=== PATIENT | male | born 1950 | race Two or more races ===

== ENCOUNTER 2019-04-03 03:28 | Emergency (ER) | payer OTHER ==
[~2019-04-03] VITALS: Ht 177.8 cm; Wt 68.0 kg
[2019-04-03] MEDS ORDERED: InsuLIN REG 1unit/0.01ml Soln (100units/ml) IV ONE (04:15)
[2019-04-03] MEDS ORDERED: SODIUM CHLORIDE 0.9% 1,000 ML IV ONE (04:15)
[2019-04-03] MEDS ORDERED: cefTRIAXone 1GM/50ML D5W 50 ML IV ONE (04:15)
[2019-04-03] MEDS ORDERED: VANCOMYCIN 1GM/250ML 250 ML IV ONE (04:15)
[2019-04-03 04:23] LABS: Basophils # (auto) 0.1 uL; Eosinophils # (auto) 0.2 uL; Eosinophils % (auto) 1.6 % (0.0-7.0); Hematocrit 40.5 % (41.0-53.0); Hemoglobin 13.5 g/dL (13.5-17.5); Lymphocytes # (auto) 1.1 uL; Lymphocytes % (auto) 10.5 % (10.0-50.0); Mean Corpuscular Hemoglobin 31.1 pg (28.0-32.0); Mean Corpuscular Hgb Conc. 33.4 g/dL (32.0-36.0); Mean Corpuscular Volume 93.1 fL (80.0-100.0); Monocytes % (auto) 9.1 % (0.0-12.0); Neutrophils # (auto) 8.4 uL; Neutrophils % (auto) 77.8 % (37.0-80.0); Platelet Count (auto) 245 10^3/uL (140-450); Red Blood Cells 4.35 10^6/uL (4.5-5.90); Red Cell Distribution Width 12.8 % (11.8-14.3); White Blood Cell 10.8 10^3/uL (4.4-10.8)
[2019-04-03 04:45] LABS: Albumin 3.2 g/dL (3.4-5.0); Calcium 8.7 mg/dL (8.5-10.1)
[2019-04-03 04:47] LABS: Bilirubin, Total 0.8 mg/dL (0.2-1.0); Total Protein 8.6 g/dL (6.4-8.2)
[2019-04-03 04:52] LABS: Potassium 4.6 mmol/L (3.5-5.1)
[2019-04-03 07:25] VITALS: BP 122/53
[2019-04-03] MEDS ORDERED: ACETAMINOPHEN 325 MG TAB PO ONE (07:30)
== END 2019-04-03 07:50 | disposition short-term general hospital (02) ==
LOC: ER 03:31
DX: L03.116 Cellulitis of left lower limb (principal); E11.52 Type 2 diabetes mellitus with diabetic peripheral angiopathy with gangrene; I96 Gangrene, not elsewhere classified; E11.65 Type 2 diabetes mellitus with hyperglycemia
CPT/HCPCS: 36415; 73700; 80053; 82962; 83605; 85025; 87040; 96365; 96368; 96375; 99285; J0696; J1815; J3370; J7030

== ENCOUNTER 2019-06-01 21:35 | Emergency (ER) | payer OTHER ==
[~2019-06-01] VITALS: Ht 177.8 cm; Wt 50.8 kg
[2019-06-01 22:15] LABS: Basophils # (auto) 0 uL; Basophils % (auto) 0.7 % (0.0-2.0); Eosinophils # (auto) 0.5 uL; Eosinophils % (auto) 6.9 % (0.0-7.0); Hemoglobin 12.6 g/dL (13.5-17.5); Lymphocytes # (auto) 1.7 uL; Lymphocytes % (auto) 24.6 % (10.0-50.0); Mean Corpuscular Hemoglobin 30.7 pg (28.0-32.0); Mean Corpuscular Hgb Conc. 33.2 g/dL (32.0-36.0); Mean Corpuscular Volume 92.4 fL (80.0-100.0); Monocytes # (auto) 0.5 uL; Monocytes % (auto) 7.6 % (0.0-12.0); Neutrophils # (auto) 4.2 uL; Neutrophils % (auto) 60.2 % (37.0-80.0); Platelet Count (auto) 248 10^3/uL (140-450); Red Blood Cells 4.11 10^6/uL (4.5-5.90); Red Cell Distribution Width 14.2 % (11.8-14.3); White Blood Cell 6.9 10^3/uL (4.4-10.8)
[2019-06-01 22:33] LABS: Alanine Aminotransferase 22 U/L (16-61); Albumin 3.1 g/dL (3.4-5.0); Anion Gap 6 (5-15); Aspartate Aminotransferase 16 U/L (15-37); BUN/Creatinine Ratio 28.4; Blood Urea Nitrogen 31 mg/dL (7-18); Calcium 8.5 mg/dL (8.5-10.1); Carbon Dioxide 26 mmol/L (21-32); Chloride 106 mmol/L (98-107); GFR African American 86 mL/min; GFR Non-African American 71 mL/min; Glucose 357 mg/dL (74-106); Potassium 4.3 mmol/L (3.5-5.1); Sodium 138 mmol/L (136-145)
[2019-06-01 22:38] LABS: Alkaline Phosphatase 111 U/L (45-117); Bilirubin, Total 0.4 mg/dL (0.2-1.0); Total Protein 7.4 g/dL (6.4-8.2)
[2019-06-02 00:10] VITALS: BP 158/69
== END 2019-06-02 01:01 | disposition home or self-care (01) ==
LOC: ER 21:37
DX: L03.115 Cellulitis of right lower limb (principal)
CPT/HCPCS: 36415; 73700; 80053; 83605; 84484; 85025; 87040

== ENCOUNTER 2024-05-30 16:55 | Emergency (ER) | payer OTHER, MEDICAID ==
[~2024-05-30] VITALS: Ht 175.3 cm; Wt 43.0 kg
--- NOTE | 2024-05-30 18:29 | ED.PDOC ---
History of Present Illness HPI Comments 73-year-old male with PMHx DM, HTN, Dementia brought in by EMS presents with a chief complaint of abdominal pain, nausea, and right foot wound. Patient has necrosis on the right 1st and 2nd toes and they are black in color. Patient is a poor historian secondary to Dementia diagnosis. Patient believes that he is here due to abdominal pain, however, [facility]PS called EMS due to living conditions being non-appropriate for patient. Patient lives with his blind whom is unable to fully care for patient. Chief Complaint: Failure to Thrive Time Seen by MD: 18:12 Primary Care Provider: YARELI Reviewed Notes: Medications, Allergies Allergies: Coded Allergies: NO KNOWN ALLERGIES (Unverified , 04/03/19) Information Source: Patient, Emergency Med Personnel Mode of Arrival: EMS Severity: Moderate Timing: Hours Duration: Since onset Prehospital treatment: None Past Medical History PAST MEDICAL HISTORY: Dementia, DM, High Lipids Surgical History: Denies all surgeries Family History Family History: Reviewed,noncontributory to illness Social History Smoker: Non-Smoker Alcohol: Denies ETOH Use Drugs: Denies Drug Use Lives In: Home Constitutional: denies: chills, diaphoresis, fatigue, fever, malaise, sweats, weakness, others EENTM: denies: blurred vision, double vision, ear bleeding, ear discharge, ear drainage, ear pain, ear ringing, eye pain, eye redness, hearing loss, mouth pain, mouth swelling, nasal discharge, nose bleeding, nose congestion, nose pain, photophobia, tearing, throat pain, throat swelling, voice changes, others Respiratory: denies: cough, hemoptysis, orthopnea, SOB at rest, shortness of breath, SOB with excertion, stridor, wheezing, others Cardiovascular: denies: chest pain, dizzy spells, diaphoresis, Dyspnea on exertion, edema, irregular heart beat, left arm pain, lightheadedness, palpitations, PND, syncope, others Gastrointestinal: reports: abdominal pain, nausea; denies: abdomen distended, blood streaked bowels, constipated, diarrhea, dysphagia, difficulty swallowing, hematemesis, melena, poor appetite, poor fluid intake, rectal bleeding, rectal pain, vomiting, others Genitourinary: denies: burning, dysuria, flank pain, frequency, hematuria, incontinence, penile discharge, penile sore, pain, testicle pain, testicle swelling, urgency, others Neurological: denies: dizziness, fainting, headache, left sided numbness, left sided weakness, numbness, paresthesia, pre-existing deficit, right sided numbness, right sided weakness, seizure, speech problems, tingling, tremors, weakness, others Musculoskeletal: denies: back pain, gout, joint pain, joint swelling, muscle pain, muscle stiffness, neck pain, others Integumetry: reports: wounds (RIGHT FOOT); denies: bruises, change in color, change in hair/nails, dryness, laceration, lesions, lumps, rash, others Allergic/Immunocompromised: denies: Difficulty Healing, Frequent Infections, Hives, Itching, others Hematologic/Lymphatic: denies: anemia, blood clots, easy bleeding, easy bruising, swollen glands, others Endocrine: denies: excessive hunger, excessive sweating, excessive thirst, excessive urination, flushing, intolerance to cold, intolerance to heat, unexplained weight gain, unexplained weight loss, others Psychiatric: denies: anxiety, bipolar disorder, depression, hopeless, panic disorder, schizophrenia, sleepless, suicidal, others All Other Systems: Reviewed and Negative Physical Exam General Appearance: Moderate Distress, Normal HEENT: Normal ENT Inspection, Pharynx Normal, TMs Normal Neck: Full Range of Motion, Non-Tender, Normal, Normal Inspection Respiratory: Chest Non-Tender, Lungs Clear, No Accessory Muscle Use, No Respiratory Distress, Normal Breath Sounds Cardiovascular: No Edema, No JVD, No Murmur, No Gallop, Normal Peripheral Pulses, Regular Rate/Rhythm Breast Exam: Deferred Gastrointestinal: No Organomegaly, Non Tender, No Pulsatile Mass, Normal Bowel Sounds, Soft Genitalia: Deferred Pelvic: Deferred Rectal: Deferred Extremities: No calf tenderness, Normal capillary refill, Normal inspection, Normal range of motion, Non-tender, No pedal edema Musculoskeletal : Apperance: Normal Neurologic: Alert, radiology equipment servicer II-XII nml as Tested, No Motor Deficits, Normal Affect, Normal Mood, No Sensory Deficits Cerebellar Function: Normal Reflexes: Normal Skin: Dry, Normal Color, Warm Lymphatic: No Adenopathy Was a procedure done? Was a procedure done?: No Differential Dx Considerations may include: Failure to thrive also mellitus of the feet. Diabetic foot ulcers X-Ray, Labs, Meds, VS Vital Signs Date Time Temp Pulse Resp B/P (MAP) Pulse Ox O2 Delivery O2 Flow Rate FiO2 05/30/24 20:10 95 05/30/24 19:25 98.0 98 16 129/70 (89) 97 98.0 05/30/24 19:25 98 16 97 Room Air* 0 21 05/30/24 19:07 99 05/30/24 18:48 105 8 99 Room Air* 0 05/30/24 18:05 105 8 130/62 (84) 99 05/30/24 18:02 102 05/30/24 17:00 98.3 93 18 135/59 (84) 98 Lab Test 05/30/24 19:19 05/30/24 18:30 Range/Units Troponin I High Sensitivity 10 7 </=54 ng/L White Blood Count 7.7 4.4-10.8 10^3/uL Red Blood Count 3.53 L 4.5-5.90 10^6/uL Hemoglobin 10.8 L 13.5-17.5 g/dL Hematocrit 32.2 L 41.0-53.0 % Mean Corpuscular Volume 91.4 80.0-100.0 fL Mean Corpuscular Hemoglobin 30.6 28.0-32.0 pg Mean Corpuscular Hemoglobin Concent 33.5 32.0-36.0 g/dL Red Cell Distribution Width 14.7 H 11.8-14.3 % Platelet Count 292 140-450 10^3/uL Mean Platelet Volume 8.2 6.9-10.8 fL Neutrophils (%) (Auto) 73.0 37.0-80.0 % Lymphocytes (%) (Auto) 17.6 10.0-50.0 % Monocytes (%) (Auto) 7.6 0.0-12.0 % Eosinophils (%) (Auto) 1.3 0.0-7.0 % Basophils (%) (Auto) 0.5 0.0-2.0 % Neutrophils # (Auto) 5.6 1.6-8.6 10 ^3/uL Lymphocytes # (Auto) 1.4 0.4-5.4 10 ^3/uL Monocytes # (Auto) 0.6 0-1.3 10 ^3/uL Eosinophils # (Auto) 0.1 0-0.8 10 ^3/uL Basophils # (Auto) 0 0-0.2 10 ^3/uL Nucleated Red Blood Cells 0.1 % Prothrombin Time 10.9 9.3-11.8 sec Prothrombin Time INR 1.03 0.9-1.15 Activated Partial Thromboplast Time 24.7 24.5-34.5 SEC Sodium Level 142 136-145 mmol/L Potassium Level 4.3 3.5-5.1 mmol/L Chloride Level 105 98-107 mmol/L Carbon Dioxide Level 31 20-31 mmol/L Anion Gap 6 5-15 Blood Urea Nitrogen 18 9-23 mg/dL Creatinine 0.92 0.700-1.30 mg/dL Glomerular Filtration Rate Calc 87 >90 mL/min BUN/Creatinine Ratio 19.6 10.0-20.0 Serum Glucose 216 H 74-106 mg/dL Calcium Level 9.6 8.7-10.4 mg/dL Magnesium Level 2.0 1.6-2.6 mg/dL Total Bilirubin 0.6 0.2-1.0 mg/dL Aspartate Amino Transferase (AST) 28 13-40 U/L Alanine Aminotransferase (ALT) 26 7-40 U/L Alkaline Phosphatase 134 H 46-116 U/L B-Type Natriuretic Peptide 111.06 0-100 pg/mL Total Protein 6.4 5.7-8.2 g/dL Albumin 3.7 3.2-4.8 g/dL Current Medications Medications (Trade) Dose Ordered Sig/Vicki Route Start Time Stop Time Status Last Admin Sodium Chloride 1,000 ml @ 150 mls/hr Q6H40M ONCE IV 05/30/24 18:15 05/31/24 00:54 05/30/24 18:57 Vancomycin HCl 200 ml @ 200 mls/hr ONCE ONCE IV 05/30/24 18:15 05/30/24 19:14 DC 05/30/24 19:05 PATIENT: MATT SANCHESCCT: [id number]: [id number] : 1950 LOC: ER ROOM / BED: / AGE / SEX: 73 / M ADM STATUS: REG ER SERVICE 18 ORDERING PHYSICIAN: FERNANDO ROMAN MD PROCEDURE(s): LFOT2 - L FOOT 2 VIEW XRAY REASON: ulcers ORDER NUMBER(s): [id number], ACCESSION NUMBER(s): [id number] CLINICAL INDICATION: ulcers TECHNIQUE: 2 radiographic views of the LEFT FOOT were obtained. 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 There is subluxation of the distal phalanx of the 2nd toe on the middle phalanx with erosive changes of the 2nd toe distal phalanx tuft. No evidence of acute traumatic fractures . If there is concern for osteomyelitis, MRI should be considered for further evaluation. ATED BY: BECKY ZAMORA DO DICTATED DATE/TIME: 05/30/242058 SIGNED BY: BECKY ZAMORA DO SIGNED DATE/TIME: 05/30/242058 PATIENT: MATT SANCHESCCT: [id number]: [id number] : 1950 LOC: ER ROOM / BED: / AGE / SEX: 73 / M ADM STATUS: REG ER SERVICE 06 ORDERING PHYSICIAN: FERNANDO ROMAN MD PROCEDURE(s): CXRP - CHEST PORTABLE REASON: failure to thrive ORDER NUMBER(s): [id number], ACCESSION NUMBER(s): [id number] CHEST RADIOGRAPH Indication:failure to thrive Technique: Single frontal view of the chest was obtained Comparison: None FINDINGS: Lines and Tubes: None Lungs: No focal consolidation. Pleura: No effusion. No pneumothorax. Cardiomediastinal contours: Unremarkable Bones: No acute osseous abnormality. IMPRESSION: No acute cardiopulmonary disease. ATED BY: BECKY ZAMORA DO DICTATED DATE/TIME: 05/30/241845 SIGNED BY: BECKY ZAMORA DO SIGNED DATE/TIME: 05/30/241845 [place] [address] Ph: [phone] DIAGNOSTIC IMAGING Diagnostic Imaging Report : [id number] Signed PATIENT: JESUS SANCHES ACCT: [id number] UNIT: [id number] : 1950 LOC: ER ROOM / BED: / AGE / SEX: 73 / M ADM STATUS: REG ER SERVICE 1833 ORDERING PHYSICIAN: FERNANDO ROMAN MD PROCEDURE(s): ABPL - CT AB PEL WO CON-NO ORAL OR IV REASON: abd pain ORDER NUMBER(s): [id number], ACCESSION NUMBER(s): [id number] Exam: CT CT AB PEL WO CON-NO ORAL OR IV History: abd pain Comparison Study: None available at time of dictation. TECHNIQUE: Multidetector CT of the abdomen was performed from lung bases to pubic symphysis. Imaging was performed without IV contrast. Axial, coronal and sagittal multiplanar reformats were obtained from the axial data set by the technologist. Radiation Dose Information: CT Dose: CTDI volume is 9.53 mGy. Dose-length product is 490.34 mGy*cm FINDINGS: Evaluation of solid organs is limited due to lack of intravenous contrast use. Findings: Lung Bases: No acute or significant lung base finding. Normal heart size. No pleural or pericardial effusion. Liver: The liver is normal in size. No focal lesions. Gallbladder and Biliary Tree: Questionable gallstone Spleen: Unremarkable Pancreas: The pancreas is grossly normal in appearance. Adrenal Glands: Unremarkable Kidneys: Kidneys are grossly normal without calculi or hydronephrosis. Bladder: Grossly unremarkable for degree of distention. Bowel: The stomach is grossly normal in appearance. Small bowel and colon are normal in caliber and distribution. The appendix is not visualized; however, no secondary findings of acute appendicitis identified. Ascites: Absent Lymphadenopathy: No mesenteric, retroperitoneal or periportal lymphadenopathy. Abdominal Wall and Mesentery: Unremarkable. Vasculature: The visualized abdominal aorta is normal in size and caliber. Eval uation of abdominal and pelvic vessels is limited due to lack of intravenous contrast. Pelvic Organs: Unremarkable Musculoskeletal: No aggressive focal bony lesions, acute fractures or dislocation. Bilateral hip prosthesis creating beam hardening artifact obscuring pelvic detail. Soft tissues: 4.8 by 3.5 cm soft tissue mass in the left inguinal area. IMPRESSION: 1. Questionable cholelithiasis ( series 2 ; images 23-25) 2. No findings of bowel obstruction 3. Large stool burden throughout the colon . Radiation optimization: All CT scans at this facility use at least one of these dose optimization techniques: automated exposure control mA and/or kV adjustment per patient size (includes targeted exams where dose is matched to clinical indication) or iterative reconstruction. ATED BY: FRANK SERRANO Jr., DO DICTATED DATE/TIME: 05/30/242047 SIGNED BY: FRANK SERRANO Jr., SIGNED DATE/TIME: 05/30/242047 CC: First troponin is seven. Second troponin is 10. BNP is 111. EKG shows no signs of ischemia. Hemoglobin is 10.8. Abdominal pelvis CT reveals constipation and cholelithiasis. The patient also has several small diabetic toe and foot ulcers on the left foot. He was placed on vancomycin. Left foot x-ray ? Osteo mellitus Patient was placed Zosyn and vancomycin. The patient will be transferred to [place] by Dr. Mccoy. Authorization #[id number] Time of 1ST Reevaluation: 18:42 Reevaluation 1ST: Unchanged Patient Education/Counseling: Diagnosis, Treatment, Prognosis Family Education/Counseling: No Family Present Departure 1 Departure Time of Disposition: 21:28 Impression: Primary Impression: Failure in dosage Additional Impressions: Poorly controlled diabetes mellitus Diabetic foot ulcer Qualified Codes: E11.621 - Type 2 diabetes mellitus with foot ulcer; L97.503 - Non-pressure chronic ulcer of other part of unspecified foot with necrosis of muscle Cholelithiasis Qualified Codes: K80.20 - Calculus of gallbladder without cholecystitis without obstruction Constipation Qualified Codes: K59.00 - Constipation, unspecified Urinary incontinence Qualified Codes: R32 - Unspecified urinary incontinence Gravely disabled Osteomyelitis Qualified Codes: M86.9 - Osteomyelitis, unspecified Disposition: 02 SHORT TERM HOSPITAL Condition: Stable Discharged With: Self Critical Care Note Critical Care Time?: Yes (55 min-critical care time only) Stability Stability form required: No I personally scribed for FERNANDO ROMAN MD ([email or web address]) on 05/30/24 at 18:29. Electronically submitted by Boston Parson ([email or web address]). I personally scribed for FERNANDO ROMAN MD ([email or web address]) on 05/30/24 at 19:12. Electronically submitted by Boston Parson ([email or web address]). I personally scribed for FERNANDO ROMAN MD ([email or web address]) on 05/30/24 at 21:22. Electronically submitted by Boston Parson ([email or web address]). FERNANDO ROMAN MD May 30, 2024 18:29
[2024-05-30 18:48] VITALS: PULSE 105; RESP 8; O2SAT 99
--- NOTE | 2024-05-30 18:49 | DVH ---
CHEST RADIOGRAPH Indication:failure to thrive Technique: Single frontal view of the chest was obtained Comparison: None FINDINGS: Lines and Tubes: None Lungs: No focal consolidation. Pleura: No effusion. No pneumothorax. Cardiomediastinal contours: Unremarkable Bones: No acute osseous abnormality. IMPRESSION: No acute cardiopulmonary disease.
[2024-05-30] MEDS: SODIUM CHLORIDE 0.9% 1,000 ML IV ONE (18:57)
[2024-05-30 19:02] LABS: Basophils # (auto) 0 10 ^3/uL (0-0.2); Basophils % (auto) 0.5 % (0.0-2.0); Eosinophils # (auto) 0.1 10 ^3/uL (0-0.8); Eosinophils % (auto) 1.3 % (0.0-7.0); Hematocrit 32.2 % (41.0-53.0); Hemoglobin 10.8 g/dL (13.5-17.5); Lymphocytes # (auto) 1.4 10 ^3/uL (0.4-5.4); Lymphocytes % (auto) 17.6 % (10.0-50.0); Mean Corpuscular Hemoglobin 30.6 pg (28.0-32.0); Mean Corpuscular Hgb Conc. 33.5 g/dL (32.0-36.0); Mean Corpuscular Volume 91.4 fL (80.0-100.0); Monocytes # (auto) 0.6 10 ^3/uL (0-1.3); Monocytes % (auto) 7.6 % (0.0-12.0); Neutrophils # (auto) 5.6 10 ^3/uL (1.6-8.6); Nucleated Red Blood Cells % 0.1 %; Platelet Count (auto) 292 10^3/uL (140-450); Red Blood Cells 3.53 10^6/uL (4.5-5.90); Red Cell Distribution Width 14.7 % (11.8-14.3); White Blood Cell 7.7 10^3/uL (4.4-10.8)
[2024-05-30] MEDS: VANCOMYCIN 1GM/200ML PREMIX 200 ML IV ONE (19:05)
[2024-05-30 19:18] LABS: Alanine Aminotransferase 26 U/L (7-40); Albumin 3.7 g/dL (3.2-4.8); Alkaline Phosphatase 134 U/L (46-116); Anion Gap 6 (5-15); Aspartate Aminotransferase 28 U/L (13-40); BUN/Creatinine Ratio 19.6 (10.0-20.0); Bilirubin, Total 0.6 mg/dL (0.2-1.0); Blood Urea Nitrogen 18 mg/dL (9-23); Calcium 9.6 mg/dL (8.7-10.4); Carbon Dioxide 31 mmol/L (20-31); Chloride 105 mmol/L (98-107); Glucose 216 mg/dL (74-106); INR 1.03 (0.9-1.15); Partial Thromboplastin Time 24.7 SEC (24.5-34.5); Potassium 4.3 mmol/L (3.5-5.1); Prothrombin Time 10.9 sec (9.3-11.8); Sodium 142 mmol/L (136-145); Total Protein 6.4 g/dL (5.7-8.2)
[2024-05-30 19:25] VITALS: PULSE 98; RESP 16; O2SAT 97
--- NOTE | 2024-05-30 20:26 | ECG ---
[facility] Test Date: 2024-05-30 Test Time: 20:10:53 Pat Name: JESUS SANCHES Department: ED Room: Gender: M Manager Branch: GRANT : 1950 Requested By: FERNANDO ROMAN Order Number: [id number] Reading MD: Measurements Intervals [place] Rate: 95 P: 10 LA: 225 QRS: 48 QRSD: 98 T: 76 QT: 370 QTc: 465 Interpretive Statements Sinus rhythm Prolonged LA interval Low voltage, extremity leads RSR' in V1 or V2, probably normal variant Artifact in lead(s) I,II,III,aVR,aVL,aVF,V1,V2,V5,V6 Please click the below link to view image of tracing.
--- NOTE | 2024-05-30 20:51 | DVH ---
Exam: CT CT AB PEL WO CON-NO ORAL OR IV History: abd pain Comparison Study: None available at time of dictation. TECHNIQUE: Multidetector CT of the abdomen was performed from lung bases to pubic symphysis. Imaging was performed without IV contrast. Axial, coronal and sagittal multiplanar reformats were obtained fr om the axial data set by the technologist. Radiation Dose Information: CT Dose: CTDI volume is 9.53 mGy. Dose-length product is 490.34 mGy*cm FINDINGS: Evaluation of solid organs is limited due to lack of intravenous contrast use. Findings: Lung Bases: No acute or significant lung base finding. Normal heart size. No pleural or pericardial effusion. Liver: The liver is normal in size. No focal lesions. Gallbladder and Biliary Tree: Questionable gallstone Spleen: Unremarkable Pancreas: The pancreas is grossly normal in appearance. Adrenal Glands: Unremarkable Kidneys: Kidneys are grossly normal without calculi or hydronephrosis. Bladder: Grossly unremarkable for degree of distention. Bowel: The stomach is grossly normal in appearance. Small bowel and colon are normal in caliber and d istribution. The appendix is not visualized; however, no secondary findings of acute appendicitis id entified. Ascites: Absent Lymphadenopathy: No mesenteric, retroperitoneal or periportal lymphadenopathy. Abdominal Wall and Mesentery: Unremarkable. Vasculature: The visualized abdominal aorta is normal in size and caliber. Evaluation of abdominal a nd pelvic vessels is limited due to lack of intravenous contrast. Pelvic Organs: Unremarkable Musculoskeletal: No aggressive focal bony lesions, acute fractures or dislocation. Bilateral hip pros thesis creating beam hardening artifact obscuring pelvic detail. Soft tissues: 4.8 by 3.5 cm soft tissue mass in the left inguinal area. IMPRESSION: 1. Questionable cholelithiasis ( series 2 ; images 23-25) 2. No findings of bowel obstruction 3. Large stool burden throughout the colon . Radiation optimization: All CT scans at this facility use at least one of these dose optimization nahid hniques: automated exposure control mA and/or kV adjustment per patient size (includes targeted exam s where dose is matched to clinical indication) or iterative reconstruction.
--- NOTE | 2024-05-30 21:02 | DVH ---
CLINICAL INDICATION: ulcers TECHNIQUE: 2 radiographic views of the LEFT FOOT were obtained. 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 There is subluxation of the distal phalanx of th e 2nd toe on the middle phalanx with erosive changes of the 2nd toe distal phalanx tuft. No evidence of acute traumatic fractures . If there is concern for osteomyelitis, MRI should be considered for further evaluation.
[2024-05-30] MEDS: PIPERACILLIN-TAZOB 3.375GM 100 ML IV ONE (22:06)
[2024-05-31 00:08] VITALS: BP 121/53; PULSE 92; RESP 17; TEMP 99; O2SAT 97
--- NOTE | 2024-05-31 06:48 | ECG ---
[facility] Test Date: 2024-05-30 Test Time: 19:07:12 Pat Name: JESUS SANCHES Department: ER Room: Gender: M Raimann Machine Operator: MITCH : 1950 Requested By: FERNANDO ROMAN Order Number: [id number] Reading MD: Measurements Intervals [place] Rate: 99 P: 0 [place]: 98 QRS: 74 QRSD: 106 T: 89 QT: 347 QTc: 446 Interpretive Statements Sinus rhythm RSR' in V1 or V2, right VCD or RVH Nonspecific repol abnormality, diffuse leads Artifact in lead(s) I,II,aVR,V1,V2,V3,V4,V5,V6 and baseline wander in lead(s) V1 Please click the below link to view image of tracing.
== END 2024-05-31 00:29 | disposition short-term general hospital (02) ==
LOC: EDBD 16:55 → ER 17:18
DX: R10.9 Unspecified abdominal pain (principal); E11.65 Type 2 diabetes mellitus with hyperglycemia; E11.621 Type 2 diabetes mellitus with foot ulcer; I10 Essential (primary) hypertension; F03.90 Unspecified dementia, unspecified severity, without behavioral disturbance, psychotic disturbance, mood disturbance, and anxiety; K59.00 Constipation, unspecified; E78.5 Hyperlipidemia, unspecified; R06.02 Shortness of breath
CPT/HCPCS: 36415; 71045; 73620; 74176; 80053; 83735; 83880; 84484; 85025; 85610; 85730; 87040; 93005; 96365; 96366; 96367; 99285; J2543; J3370